=== PATIENT | female | born 1995 | race American Indian/Alaskan Native ===

== ENCOUNTER 2020-03-05 05:18 | Inpatient (IN) | payer OTHER ==
[2020-03-05] MEDS ORDERED: LACTATED RINGERS 1,000 ML ONE (06:07)
[2020-03-05] MEDS ORDERED: LACTATED RINGERS 1,000 ML IV ONE (06:33)
[2020-03-05] MEDS: BUTORPHANOL 2 MG/1 ML INJ IV PRN ×2 (07:01→20:30)
[2020-03-05] MEDS ORDERED: LIDOCAINE (2%) 20 MG/1 ML VIAL 20 ML MDV INFILTRATI ONE (10:43)
[2020-03-05] MEDS ORDERED: ePHEDrine SULFATE 50 MG/1 ML INJ IV PRN (10:43)
[2020-03-05] MEDS ORDERED: MINERAL OIL 30 ML ORAL LIQD PO PRN (10:43)
[2020-03-05] MEDS ORDERED: TERBUTALINE 1 MG/1 ML INJ SUB-Q PRN (10:43)
[2020-03-05] MEDS ORDERED: TERBUTALINE 1 MG/1 ML INJ IVP PRN (10:43)
[2020-03-05] MEDS ORDERED: OXYTOCIN 20 UNIT/1000ML DRIP 20 UNITS/1,000 ML BAG IV SCH (11:00)
--- NOTE | 2020-03-05 11:11 | History and Physical Report ---
History of Present Illness Date of examination: 03/05/20 Date of admission: 03/05/20 09:55 Chief complaint: Contractions History of present illness: 24yo G 3 P 1 0 1 1 @ 38 weeks 0 day here with c/o contractions since 3am. She reports +FMs but denies VB or LOF. She is a [facility] patient who initiated care at 8 weeks gestation. Her course is complicated by h/o shoulder dystocia. LABS: A pos, Antibody Screen neg, Pap Smear normal, RI, VDRL NR, HBsAg neg, HIV neg, MSAFP neg, Panorama Low risk, Diabetes Screen 88, GC/CT/Trich neg, GBS neg. Past History Past Medical History: other (Eczema) Past Surgical History: other (elective ) Family/Genetic History: diabetes Social history: single, lives with family, full code. denies: smoking, alcohol abuse, prescription drug abuse, IV drug use - Obstetrical History Expected Date of Delivery: 03/19/20 Actual Gestation: 38 Week(s) 0 Day(s) : 3 Para: 1 Hx # Term Pregnancies: 1 Number of Pregnancies: 0 Spontaneous Abortions: 0 Induced : 1 Number of Living Children: 1 #1 Infant Gender: Male year: 2[age]015 (12/04/2014) Birthweight: 3.6 kg (7 lbs 15 oz) Method of Delivery: Vaginal Gestational age at delivery: 40 Complications: none Medications and Allergies Allergies Allergy/AdvReac Type Severity Reaction Status Date / Time No Known Allergies Allergy Verified 07/23/14 14:41 Home Medications Medication Instructions Recorded Confirmed Last Taken Type Vit No.126/Iron/Folic 1 cap PO DAILY 07/23/14 07/23/14 07/21/14 09:00 History [Classic Tablet] Active Meds: Active Medications Butorphanol Tartrate (Stadol) 2 mg IV Q2H PRN PRN Reason: Labor Pain Last Admin: 03/05/20 07:01 Dose: 2 mg Documented by: Ephedrine Sulfate (Ephedrine Sulfate) 10 mg IV Q2M PRN PRN Reason: Hypotension Fentanyl (Sublimaze) 100 mcg IV Q2H PRN PRN Reason: Labor Pain Oxytocin/Sodium Chloride (Pitocin/Ns 20 Unit/1000ml Drip) 20 units in 1,000 mls @ 125 mls/hr IV DIRECT ASHU Lactated Ringer's (Lactated Ringers) 1,000 mls @ 125 mls/hr IV DIRECT ASHU Oxytocin/Sodium Chloride (Pitocin/Ns 30 Unit/500ml) 30 units in 500 mls @ 0 mls/hr IV TITR ASHU; Protocol Mineral Oil (Mineral Oil) 30 ml PO QHS PRN PRN Reason: Constipation Terbutaline Sulfate (Brethine) 0.25 mg SUB-Q ONCE PRN PRN Reason: Hyperstimulation/Hypertonicity Terbutaline Sulfate (Brethine) 0.25 mg IVP ONCE PRN PRN Reason: Hyperstimulation/Hypertonicity Review of Systems All systems: negative - Vital Signs Vital signs: Vital Signs Temp Pulse Resp BP Pulse Ox 97.8 F 80 18 102/64 95 03/05/20 05:22 03/05/20 05:22 03/05/20 05:22 03/05/20 05:22 03/05/20 05:22 Temp Pulse Resp BP Pulse Ox 97.8 F 70 18 123/72 98 03/05/20 05:22 03/05/20 11:03 03/05/20 07:01 03/05/20 10:59 03/05/20 11:03 - Physical Exam Vagina: Positive: normal moisture Uterus: Positive: normal size, normal contour - Obstetrical FHR: auscultation normal, category 1 FHR comments: baseline 130, moderate variability, 15x15 accels, no decels Uterine Contraction Monitor Mode: Palpation Cervical Dilatation: 3.5 Cervical Effacement Percentage: 60 station: -2 Uterine Contraction Pattern: Regular Results All other labs normal. Assessment and Plan - Patient Problems (1) 38 weeks gestation of Current Visit: Yes Status: Acute (2) Active labor at term Current Visit: Yes Status: Acute Plan to address problem: Admit to L&D with routine labor orders Start Oxytocin for labor augmentation Anticipate vaginal delivery (3) H/O shoulder dystocia in prior , currently Current Visit: Yes Status: Acute
[2020-03-05] MEDS: LACTATED RINGERS 1,000 ML IV SCH ×2 (11:20→20:30)
[2020-03-05] MEDS: OXYTOCIN DRIP 30 UNITS/500 ML BAG IV SCH (11:21)
[2020-03-05 11:25] LABS: Hemoglobin 10.3 gm/dl (10.1-14.3); Mean Corpuscular HGB Conc 33 % (30-34); Mean Corpuscular Volume 75 fl (79-97); Platelet Count 209 K/mm3 (140-440); Red Blood Count 4.12 M/mm3 (3.65-5.03); Red Cell Distribution Width 15.2 % (13.2-15.2)
[2020-03-05] MEDS: fentaNYL 100 MCG/2 ML INJ IV PRN ×2 (13:23→17:42)
[2020-03-06] MEDS: OXYTOCIN DRIP 30 UNITS/500 ML BAG IV SCH (09:36)
--- NOTE | 2020-03-06 10:31 | Progress Note ---
Assessment and Plan - Patient Problems (1) Active labor at term Current Visit: Yes Status: Acute Plan to address problem: AROM @ 1018, clear fluids Continue Pitocin titration as tolerated Pain meds as desired Anticipate (2) Anemia Current Visit: Yes Status: Acute Qualifiers: Anemia type: iron deficiency Plan to address problem: Resume daily oral iron supplementation PP Subjective - Subjective Date of service: 03/06/20 Principal diagnosis: 38 wks gestation Interval history: See admission H & P and OB progress notes Patient reports: movement normal, contractions ("I feel them, but not bad"), no new complaints, no vaginal bleeding Objective - Vital Signs Vital Signs: Vital Signs - 12hr 03/05/20 03/05/20 03/05/20 22:35 22:38 22:39 Temperature Pulse Rate 69 67 66 Respiratory 18 Rate Blood Pressure 113/58 Blood Pressure [Left] Blood Pressure 113/58 [Right] O2 Sat by Pulse 99 99 Oximetry 03/05/20 03/05/20 03/05/20 22:40 22:45 22:50 Temperature Pulse Rate 70 70 67 Respiratory Rate Blood Pressure Blood Pressure [Left] Blood Pressure [Right] O2 Sat by Pulse 98 98 99 Oximetry 03/05/20 03/05/20 03/05/20 22:55 23:00 23:05 Temperature Pulse Rate 68 72 74 Respiratory Rate Blood Pressure Blood Pressure [Left] Blood Pressure [Right] O2 Sat by Pulse 98 98 98 Oximetry 03/05/20 03/05/20 03/05/20 23:10 23:15 23:19 Temperature Pulse Rate 72 73 74 Respiratory Rate Blood Pressure 107/60 Blood Pressure [Left] Blood Pressure [Right] O2 Sat by Pulse 98 98 Oximetry 03/05/20 03/05/20 03/05/20 23:20 23:25 23:30 Temperature Pulse Rate 70 71 68 Respiratory Rate Blood Pressure Blood Pressure [Left] Blood Pressure [Right] O2 Sat by Pulse 99 99 99 Oximetry 03/05/20 03/05/20 03/05/20 23:35 23:40 23:45 Temperature Pulse Rate 70 69 65 Respiratory Rate Blood Pressure Blood Pressure [Left] Blood Pressure [Right] O2 Sat by Pulse 99 99 99 Oximetry 03/05/20 03/05/20 03/06/20 23:50 23:55 00:00 Temperature Pulse Rate 65 64 63 Respiratory Rate Blood Pressure Blood Pressure [Left] Blood Pressure [Right] O2 Sat by Pulse 99 99 99 Oximetry 03/06/20 03/06/20 03/06/20 00:03 00:05 00:10 Temperature Pulse Rate 67 74 72 Respiratory 18 Rate Blood Pressure Blood Pressure [Left] Blood Pressure 107/60 [Right] O2 Sat by Pulse 94 99 99 Oximetry 03/06/20 03/06/20 03/06/20 00:15 00:20 00:25 Temperature Pulse Rate 74 67 66 Respiratory Rate Blood Pressure Blood Pressure [Left] Blood Pressure [Right] O2 Sat by Pulse 100 99 99 Oximetry 03/06/20 03/06/20 03/06/20 00:30 00:35 00:41 Temperature Pulse Rate 67 70 62 Respiratory Rate Blood Pressure Blood Pressure [Left] Blood Pressure [Right] O2 Sat by Pulse 99 100 98 Oximetry 03/06/20 03/06/20 03/06/20 00:56 01:01 01:06 Temperature Pulse Rate 79 71 79 Respiratory Rate Blood Pressure Blood Pressure [Left] Blood Pressure [Right] O2 Sat by Pulse 99 99 99 Oximetry 03/06/20 03/06/20 03/06/20 01:13 01:16 01:18 Temperature Pulse Rate 74 75 69 Respiratory Rate Blood Pressure Blood Pressure [Left] Blood Pressure [Right] O2 Sat by Pulse 99 79 L 99 Oximetry 03/06/20 03/06/20 03/06/20 01:19 01:23 01:28 Temperature Pulse Rate 70 64 68 Respiratory Rate Blood Pressure 118/63 Blood Pressure [Left] Blood Pressure [Right] O2 Sat by Pulse 99 98 Oximetry 03/06/20 03/06/20 03/06/20 01:33 01:38 01:43 Temperature Pulse Rate 67 70 66 Respiratory Rate Blood Pressure Blood Pressure [Left] Blood Pressure [Right] O2 Sat by Pulse 98 99 98 Oximetry 03/06/20 03/06/20 03/06/20 01:48 01:53 01:58 Temperature Pulse Rate 69 73 71 Respiratory Rate Blood Pressure Blood Pressure [Left] Blood Pressure [Right] O2 Sat by Pulse 98 98 98 Oximetry 03/06/20 03/06/20 03/06/20 02:00 02:03 02:25 Temperature 97.8 F Pulse Rate 78 69 67 Respiratory 18 Rate Blood Pressure 112/56 Blood Pressure [Left] Blood Pressure [Right] O2 Sat by Pulse 99 98 Oximetry 03/06/20 03/06/20 03/06/20 03:14 03:19 03:24 Temperature Pulse Rate 78 70 66 Respiratory Rate Blood Pressure Blood Pressure [Left] Blood Pressure [Right] O2 Sat by Pulse 100 99 98 Oximetry 03/06/20 03/06/20 03/06/20 03:29 03:34 03:39 Temperature Pulse Rate 72 71 72 Respiratory Rate Blood Pressure Blood Pressure [Left] Blood Pressure [Right] O2 Sat by Pulse 99 99 99 Oximetry 03/06/20 03/06/20 03/06/20 03:44 03:49 03:54 Temperature Pulse Rate 73 78 73 Respiratory Rate Blood Pressure Blood Pressure [Left] Blood Pressure [Right] O2 Sat by Pulse 99 99 98 Oximetry 03/06/20 03/06/20 03/06/20 03:59 04:00 04:04 Temperature 97.8 F Pulse Rate 72 80 68 Respiratory 18 Rate Blood Pressure Blood Pressure [Left] Blood Pressure 118/66 [Right] O2 Sat by Pulse 99 100 99 Oximetry 03/06/20 03/06/20 03/06/20 04:09 04:14 04:19 Temperature Pulse Rate 78 85 80 Respiratory Rate Blood Pressure Blood Pressure [Left] Blood Pressure [Right] O2 Sat by Pulse 100 99 99 Oximetry 03/06/20 03/06/20 03/06/20 04:22 04:24 04:25 Temperature Pulse Rate 70 69 71 Respiratory Rate Blood Pressure 118/66 119/64 Blood Pressure [Left] Blood Pressure [Right] O2 Sat by Pulse 99 Oximetry 03/06/20 03/06/20 03/06/20 04:29 04:34 04:39 Temperature Pulse Rate 66 64 65 Respiratory Rate Blood Pressure Blood Pressure [Left] Blood Pressure [Right] O2 Sat by Pulse 99 98 99 Oximetry 03/06/20 03/06/20 03/06/20 04:44 04:49 04:54 Temperature Pulse Rate 74 76 73 Respiratory Rate Blood Pressure Blood Pressure [Left] Blood Pressure [Right] O2 Sat by Pulse 99 99 99 Oximetry 03/06/20 03/06/20 03/06/20 04:59 05:04 05:09 Temperature Pulse Rate 67 68 68 Respiratory Rate Blood Pressure Blood Pressure [Left] Blood Pressure [Right] O2 Sat by Pulse 99 98 98 Oximetry 03/06/20 03/06/20 03/06/20 05:14 05:19 05:24 Temperature Pulse Rate 62 68 67 Respiratory Rate Blood Pressure Blood Pressure [Left] Blood Pressure [Right] O2 Sat by Pulse 99 99 99 Oximetry 03/06/20 03/06/20 03/06/20 05:29 05:34 05:48 Temperature Pulse Rate 68 73 68 Respiratory Rate Blood Pressure 120/57 Blood Pressure [Left] Blood Pressure [Right] O2 Sat by Pulse 99 99 Oximetry 03/06/20 03/06/20 03/06/20 05:49 05:54 05:59 Temperature 98.4 F Pulse Rate 68 74 67 Respiratory 18 Rate Blood Pressure Blood Pressure [Left] Blood Pressure 120/57 [Right] O2 Sat by Pulse 99 99 Oximetry 03/06/20 03/06/20 03/06/20 06:04 06:09 06:14 Temperature Pulse Rate 68 65 65 Respiratory Rate Blood Pressure Blood Pressure [Left] Blood Pressure [Right] O2 Sat by Pulse 99 98 98 Oximetry 03/06/20 03/06/20 03/06/20 06:19 06:24 06:29 Temperature Pulse Rate 71 71 76 Respiratory Rate Blood Pressure Blood Pressure [Left] Blood Pressure [Right] O2 Sat by Pulse 98 98 98 Oximetry 03/06/20 03/06/20 03/06/20 06:34 06:39 06:44 Temperature Pulse Rate 74 79 76 Respiratory Rate Blood Pressure Blood Pressure [Left] Blood Pressure [Right] O2 Sat by Pulse 98 97 98 Oximetry 03/06/20 03/06/20 03/06/20 06:49 06:54 06:59 Temperature Pulse Rate 72 72 75 Respiratory Rate Blood Pressure Blood Pressure [Left] Blood Pressure [Right] O2 Sat by Pulse 98 98 97 Oximetry 03/06/20 03/06/20 03/06/20 07:04 07:09 07:14 Temperature Pulse Rate 69 70 67 Respiratory Rate Blood Pressure Blood Pressure [Left] Blood Pressure [Right] O2 Sat by Pulse 98 97 98 Oximetry 03/06/20 03/06/20 03/06/20 07:19 07:24 07:26 Temperature 98.6 F Pulse Rate 71 64 69 Respiratory 18 Rate Blood Pressure Blood Pressure 116/64 [Left] Blood Pressure [Right] O2 Sat by Pulse 97 97 99 Oximetry 03/06/20 03/06/20 03/06/20 07:28 07:29 07:34 Temperature Pulse Rate 60 61 68 Respiratory Rate Blood Pressure 116/64 Blood Pressure [Left] Blood Pressure [Right] O2 Sat by Pulse 97 98 Oximetry 03/06/20 03/06/20 03/06/20 07:39 07:44 07:49 Temperature Pulse Rate 64 68 73 Respiratory Rate Blood Pressure Blood Pressure [Left] Blood Pressure [Right] O2 Sat by Pulse 98 99 99 Oximetry 03/06/20 03/06/20 03/06/20 07:54 08:02 08:03 Temperature Pulse Rate 81 36 L 39 L Respiratory Rate Blood Pressure Blood Pressure [Left] Blood Pressure [Right] O2 Sat by Pulse 98 72 L 88 Oximetry 03/06/20 03/06/20 03/06/20 08:07 08:12 08:17 Temperature Pulse Rate 83 84 75 Respiratory Rate Blood Pressure Blood Pressure [Left] Blood Pressure [Right] O2 Sat by Pulse 99 99 99 Oximetry 03/06/20 03/06/20 03/06/20 08:22 08:25 08:27 Temperature Pulse Rate 87 75 77 Respiratory Rate Blood Pressure 129/62 Blood Pressure [Left] Blood Pressure [Right] O2 Sat by Pulse 99 98 Oximetry 03/06/20 03/06/20 03/06/20 08:32 09:28 09:33 Temperature Pulse Rate 75 86 94 H Respiratory Rate Blood Pressure 118/61 Blood Pressure [Left] Blood Pressure [Right] O2 Sat by Pulse 99 98 99 Oximetry 03/06/20 03/06/20 03/06/20 09:38 09:43 09:48 Temperature Pulse Rate 89 85 79 Respiratory Rate Blood Pressure Blood Pressure [Left] Blood Pressure [Right] O2 Sat by Pulse 99 99 98 Oximetry 03/06/20 03/06/20 03/06/20 09:53 09:58 10:03 Temperature Pulse Rate 80 80 94 H Respiratory Rate Blood Pressure Blood Pressure [Left] Blood Pressure [Right] O2 Sat by Pulse 99 99 99 Oximetry 03/06/20 03/06/20 03/06/20 10:08 10:13 10:17 Temperature Pulse Rate 83 85 85 Respiratory Rate Blood Pressure Blood Pressure [Left] Blood Pressure [Right] O2 Sat by Pulse 98 98 71 L Oximetry 03/06/20 03/06/20 10:18 10:23 Temperature Pulse Rate 62 86 Respiratory Rate Blood Pressure Blood Pressure [Left] Blood Pressure [Right] O2 Sat by Pulse 82 L 100 Oximetry - Exam Breasts: deferred Cardiovascular: Regular rate Lungs: Normal air movement Abdomen: Present: soft, other (gravid) Uterus: Present: other (S=D) FHR: category 1 Uterine Contraction Monitor Mode: External Cervical Dilatation: 4 (Vertex) Cervical Effacement Percentage: 70 (Pitocin @ 4mu/min) station: -1 Uterine Contraction Frequency (min): 7-8 Uterine Contraction Pattern: Irregular Uterine Tone Measurement Phase: Resting Uterine Contraction Intensity: Mild Extremities: edema (slight edema in BLE) - Labs Labs: Abnormal Labs 03/05/20 11:04 MCV 75 L MCH 25 L Laboratory Results - last 24 hr 03/05/20 03/05/20 03/05/20 11:04 11:04 11:04 WBC 6.0 RBC 4.12 Hgb 10.3 Hct 31.0 MCV 75 L MCH 25 L MCHC 33 RDW 15.2 Plt Count 209 Syphilis IgG Antibody Non-reactive Blood Type A POSITIVE Antibody Screen Negative
[2020-03-06] MEDS ORDERED: ePHEDrine SULFATE 50 MG/1 ML INJ IV PRN (11:05)
[2020-03-06] MEDS ORDERED: NALOXONE 2 MG/2 ML INJ IV PRN (11:05)
--- NOTE | 2020-03-06 11:07 | Anesthesia Consultation ---
Anesthesia Consult and Med Hx Date of service: 03/06/20 - Airway Anesthetic Teeth Evaluation: Good ROM Head & Neck: Adequate Mental/Hyoid Distance: Adequate Mallampati Class: Class III Intubation Access Assessment: Probably Good - Pulmonary Exam CTA: Yes - Cardiac Exam Cardiac Exam: RRR - Pre-Operative Health Status ASA Pre-Surgery Classification: ASA3 Proposed Anesthetic Plan: Epidural - Pulmonary Hx Smoking: No Hx Asthma: No Hx Respiratory Symptoms: No SOB: No COPD: No Home Oxygen Therapy: No Hx Pneumonia: No Hx Sleep Apnea: No - Cardiovascular System Hx Hypertension: No Hx Coronary Artery Disease: No Hx Heart Attack/AMI: No Hx Angina: No Hx Percutaneous Transluminal Coronary Angioplasty (PTCA): No Hx Cardia Arrhythmia: No Hx Pacemaker: No Hx Internal Defibrillator: No Hx Valvular Heart Disease: No Hx Heart Murmur: No Hx Peripheral Vascular Disease: No - Central Nervous System Hx Neuromuscular Disorder: No Hx Seizures: No CVA: No Hx Back Pain: No Hx Psychiatric Problems: No - Gastrointestinal Hx Ulcer: No Hx Gastroesophageal Reflux Disease: No - Endocrine Hx Renal Disease: No Hx End Stage Renal Disease: No Hx Cirrhosis: No Hx Liver Disease: No Hx Insulin Dependent Diabetes: No Hx Non-Insulin Dependent Diabetes: No Hx Thyroid Disease: No Hx Hypothyroidism: No Hx Hyperthyroidism: No - Hematic Hx Anemia: No Hx Sickle Cell Disease: No - Other Systems Hx Alcohol Use: No Hx Substance Use: No Hx Cancer: No Hx Obesity: Yes
[2020-03-06] MEDS: LACTATED RINGERS 1,000 ML IV SCH (11:14)
[2020-03-06] MEDS ORDERED: DEXMEDETOMIDINE 200 MCG/2 ML VIAL IV ONE (11:32)
[2020-03-06] MEDS ORDERED: fentaNYL-BUPIV 2 MCG/ML-0.125% 200 MCG/100 ML BAG EPIDURAL SCH (12:00)
[2020-03-06] MEDS ORDERED: PROMETHAZINE 25 MG TAB PO PRN (16:10)
[2020-03-06] MEDS ORDERED: oxyCODONE /ACETAMINOPHEN 5-325MG TAB PO PRN (16:10)
[2020-03-06] MEDS ORDERED: ONDANSETRON 4 MG/2 ML INJ IV PRN (16:10)
[2020-03-06] MEDS ORDERED: ACETAMINOPHEN 325 MG TAB PO PRN (16:10)
[2020-03-06] MEDS ORDERED: LANOLIN/ZINC/DIMETHICONE (LANSINOH) 7 GM TP PRN (16:10)
[2020-03-06] MEDS ORDERED: MAGNESIUM HYDROXIDE (MOM) ORAL LIQD UDC PO PRN (16:10)
[2020-03-06] MEDS ORDERED: WITCH HAZEL/ GLYCERIN PAD TP PRN (16:10)
[2020-03-06] MEDS ORDERED: PROMETHAZINE 25 MG RECT SUPP PR PRN (16:10)
[2020-03-06] MEDS ORDERED: diphenhydrAMINE 25 MG CAP PO PRN (16:10)
--- NOTE | 2020-03-06 16:20 | Procedure Note ---
OB Delivery Note - Delivery Date of Delivery: 03/06/20 (1540) Surgeon: CHARLENE HELMS (CNM) Estimated blood loss: 300cc - Vaginal Delivery presentation: vertex Delivery position: OA (ALEXANDER) Intrapartum events: other(please specify) (Rt hand compound delivery) Delivery induction: none Delivery augmentation: rupture of membranes (AROM @ 1018) Delivery monitor: external FHT, external uterine Delivery placenta: spontaneous (1545) Delivery cord: 3 umbilical vessels Episiotomy: none Delivery laceration: 1st degree (perineal), other (angela-urethral laceration) Delivery repair: vicryl (3.0- SH) Anesthesia: epidural Delivery comments: of viable female infant, placed directly on maternal abdomen. Cord double clamped, cut by FOB after cessation of pulsation. Placenta spontaneously delivered, jimenez, disposed per hospital policy. Uterus firm at U-2. Hemostasis maintained. 1st degree perineal laceration, hemostasis maintained, no repair. Angela-urethral laceration, repaired with 3.0 SH. Mother and baby safe and stable. - A at 1 minute: 8 at 5 minutes: 9 Gender: Female (Weight: 3368gms (7lbs 6.8ozs) 19.5 inches)
[2020-03-06] MEDS: IBUPROFEN 600 MG TAB PO SCH (16:52)
--- NOTE | 2020-03-06 22:44 | Post Anesthesia Evaluation ---
- Post Anesthesia Evaluation Patient Participated: Yes Airway Patent: Yes Stable Respiratory Function: Yes Nausea/Vomiting: No Temp > 96.8F: Yes Pain Manageable: Yes Adequeate Hydration: Yes Anesthesia Complications: No Block Receding Appropriately: Yes Patient on Ventilator: No
[2020-03-07] MEDS: IBUPROFEN 600 MG TAB PO SCH ×3 (03:23→18:38)
[2020-03-07 06:02] LABS: Hematocrit 27.5 % (30.3-42.9); Hemoglobin 9.1 gm/dl (10.1-14.3)
[2020-03-07] MEDS ORDERED: FERROUS SULFATE 325 MG TAB PO SCH (10:00)
[2020-03-07] MEDS ORDERED: PRENATAL VIT27-FE FUMARATE-FOLIC ACID VIT TAB PO SCH (10:00)
--- NOTE | 2020-03-07 10:58 | Progress Note ---
Assessment and Plan A: PP Day #1 Asymptomatic Anemia P: Follow Routine Orders Continue PO FeSO4 as ordered D/c home today per patient reuest RTO in 6 weeks Subjective - Subjective Date of service: 03/07/20 Principal diagnosis: 38 wks gestation Patient reports: appetite normal, voiding normally, pain well controlled, flatus, bowel movement, ambulating normally : doing well, bottle feeding Objective - Vital Signs Latest vital signs: Vital Signs Temp Pulse Resp BP BP Pulse Ox 03/07/20 08:04 97.1 F L 69 18 100/60 97 03/07/20 06:11 97.9 F 68 20 114/58 97 03/07/20 04:45 97.9 F 69 20 114/58 98 03/06/20 20:30 98.7 F 68 18 128/60 99 03/06/20 19:22 97.8 F 75 16 116/59 116/59 99 03/06/20 19:10 70 100 03/06/20 19:05 76 99 03/06/20 19:00 73 99 03/06/20 18:56 98.4 F 67 18 124/60 99 03/06/20 18:55 67 99 03/06/20 17:15 75 112/56 03/06/20 17:14 74 113/66 03/06/20 16:55 75 122/61 03/06/20 16:51 73 100 03/06/20 16:47 74 86 03/06/20 16:46 78 118/74 100 03/06/20 16:41 76 100 03/06/20 16:36 65 100 03/06/20 16:31 66 99 03/06/20 16:26 73 100 03/06/20 16:21 71 99 03/06/20 16:16 69 118/62 100 03/06/20 16:11 68 99 03/06/20 16:06 69 99 03/06/20 16:01 76 99 03/06/20 15:59 79 106/59 03/06/20 15:56 74 98 03/06/20 15:51 74 98 03/06/20 15:50 98.2 F 03/06/20 15:46 69 103/71 99 03/06/20 15:41 71 100 03/06/20 15:36 89 100 03/06/20 15:31 74 100 03/06/20 15:25 57 L 100 03/06/20 15:20 53 L 100 03/06/20 15:15 59 L 100 03/06/20 15:10 70 99 03/06/20 15:05 73 99 03/06/20 15:00 72 123/58 99 03/06/20 14:55 63 98 03/06/20 14:50 58 L 98 03/06/20 14:45 59 L 113/58 98 03/06/20 14:40 64 97 03/06/20 14:35 66 98 03/06/20 14:30 69 114/56 98 03/06/20 14:25 61 97 03/06/20 14:20 67 97 03/06/20 14:16 63 112/62 03/06/20 14:15 67 97 03/06/20 14:10 67 97 03/06/20 14:05 63 97 03/06/20 14:00 70 106/59 96 03/06/20 13:55 62 96 03/06/20 13:50 60 97 03/06/20 13:45 73 105/57 96 03/06/20 13:40 68 97 03/06/20 13:35 63 98 03/06/20 13:30 57 L 107/61 98 03/06/20 13:25 70 97 03/06/20 13:20 70 97 03/06/20 13:15 73 98 03/06/20 13:09 69 97 03/06/20 13:04 69 97 03/06/20 13:00 74 103/52 03/06/20 12:59 72 97 03/06/20 12:54 68 97 03/06/20 12:49 84 97 03/06/20 12:45 75 102/56 03/06/20 12:44 73 97 03/06/20 12:39 62 97 03/06/20 12:34 64 97 03/06/20 12:31 76 103/55 03/06/20 12:26 71 92 03/06/20 12:21 74 92 03/06/20 12:16 74 93 03/06/20 12:12 83 105/55 03/06/20 12:11 84 91 03/06/20 12:09 60 110/58 03/06/20 12:06 62 113/56 100 03/06/20 12:04 98.3 F 03/06/20 12:03 71 123/57 03/06/20 12:01 73 98 03/06/20 12:00 72 119/57 03/06/20 11:57 75 114/57 03/06/20 11:56 73 98 03/06/20 11:54 68 120/59 03/06/20 11:51 76 127/60 98 03/06/20 11:48 78 119/59 03/06/20 11:46 71 99 03/06/20 11:45 68 122/60 03/06/20 11:44 84 76 L 03/06/20 11:42 87 137/73 03/06/20 11:41 75 100 03/06/20 11:39 77 125/64 03/06/20 11:36 84 125/65 99 03/06/20 11:33 72 122/58 03/06/20 11:31 79 99 03/06/20 11:26 69 100 03/06/20 11:23 88 82 L 03/06/20 11:21 64 97 03/06/20 11:16 69 100 03/06/20 11:11 67 86 03/06/20 11:10 75 125/58 03/06/20 11:06 73 99 03/06/20 11:01 80 100 03/06/20 10:58 81 84 Intake and Output 03/06/20 03/07/20 03/07/20 22:59 06:59 14:59 Intake Total 400 240 Output Total 425 Balance -25 240 Intake: Oral 400 240 Output: Urine 425 Indwelling Catheter 425 Other: Total, Intake Amount 400 240 Total, Output Amount 225 # Voids Indwelling Catheter 1 Estimated Blood Loss 300 - Exam Breasts: Present: normal Cardiovascular: Present: Regular rate Lungs: Present: Clear to auscultation, Normal air movement Abdomen: Present: normal appearance, soft, normal bowel sounds Uterus: Present: normal, firm, fundal height below umbilicus Extremities: Present: normal - Labs Labs: Abnormal lab results 03/07/20 Range/Units 05:43 Hgb 9.1 L (10.1-14.3) gm/dl Hct 27.5 L (30.3-42.9) %
--- NOTE | 2020-03-07 11:00 | Discharge Summary ---
Providers - Providers Date of Admission: 03/05/20 09:55 Date of discharge: 03/07/20 Attending physician: CIRA ROCHE MD Primary care physician: CIRA ROCHE MD Hospitalization Reason for admission: active labor Delivery: Episiotomy: none Laceration: none Other procedures: none complications: none Discharge diagnosis: IUP at term delivered baby: female Condition at discharge: Good Disposition: DC-01 TO HOME OR SELFCARE Plan - Provider Discharge Summary Activity: routine, no sex for 6 weeks, no heavy lifting 4 weeks, no strenuous exercise Diet: routine Instructions: routine Additional instructions: [] Smoking cessation referral if applicable(refer to patient education folder for contact #) [] Refer to [facility]'s [facility] Booklet Call your doctor immediately for: * Fever > 100.5 * Heavy vaginal bleeding ( >1 pad per hour) * Severe persistent headache * Shortness of breath * Reddened, hot, painful area to leg or breast * Drainage or odor from incision. * Keep incision clean and dry at all times and follow doctor's instructions regarding bathing/showering - Follow up plan Follow up: CIRA ROCHE MD [Primary Care Provider] - 7 Days
[2020-03-07 18:16] VITALS: BP 122/59
== END 2020-03-07 19:32 | disposition home or self-care (01) | DRG 775 ==
LOC: TRG 05:18 → LD 09:55 → OB 03-06 20:30
PROVIDERS: ADMIT Obstetrics & Gynecology; ATTEND Obstetrics & Gynecology
PROC: 10E0XZZ Delivery of Products of Conception, External Approach (ICD-10-PCS; principal; 2020-03-06)
PROC: 0HQ9XZZ Repair Perineum Skin, External Approach (ICD-10-PCS; 2020-03-06)
PROC: 3E0R3BZ Introduction of Anesthetic Agent into Spinal Canal, Percutaneous Approach (ICD-10-PCS; 2020-03-06)
PROC: 00HU33Z Insertion of Infusion Device into Spinal Canal, Percutaneous Approach (ICD-10-PCS; 2020-03-06)
DX: O32.6XX0 Maternal care for compound presentation, not applicable or unspecified (principal); O99.214 Obesity complicating childbirth; E66.9 Obesity, unspecified; O99.02 Anemia complicating childbirth; D50.9 Iron deficiency anemia, unspecified; O70.0 First degree perineal laceration during delivery; Z3A.38 38 weeks gestation of pregnancy; Z37.0 Single live birth; Z82.49 Family history of ischemic heart disease and other diseases of the circulatory system
CPT/HCPCS: 36415; 59025; 85014; 85018; 85027; 86592; 86850; 86900; 86901; 96360; 96361; 96365; 96366; 96374; G0378; J0595; J2590; J3010; J3490; J7120